=== PATIENT | male | born 1990 | race Caucasian/White ===

== ENCOUNTER 2017-08-26 10:08 | Emergency (ER) | payer OTHER ==
[~2017-08-26] VITALS: Ht 172.7 cm; Wt 77.1 kg
[~2017-08-26 10:08] MED LIST: TYLENOL WITH C1 EACH PO
--- NOTE | 2017-08-26 10:59 | Diagnostic Imaging Report ---
PROCEDURE:X-RAY RIGHT FOREARM, TWO VIEWS COMPARISON:None. INDICATIONS:S/P FALL. FINDINGS: There are no fractures, dislocations, lytic or blastic lesions. The bones are well-mineralized. The soft-tissues are unremarkable. CONCLUSION: No acute radiographic abnormality. Dictated by: Micheal Anton M.D. on 08/26/2017 at 11:08 Electronically approved by: Micheal Anton M.D. on 08/26/2017 at 11:08
== END 2017-08-26 11:40 | disposition home or self-care (01) ==
LOC: ER 10:08
DX: S50.12XA Contusion of left forearm, initial encounter (principal); W18.2XXA Fall in (into) shower or empty bathtub, initial encounter; Y93.E1 Activity, personal bathing and showering; Y92.002 Bathroom of unspecified non-institutional (private) residence as the place of occurrence of the external cause; F17.210 Nicotine dependence, cigarettes, uncomplicated
CPT/HCPCS: 99282

== ENCOUNTER 2017-10-30 20:09 | Emergency (ER) | payer OTHER ==
[~2017-10-30] VITALS: Ht 172.7 cm; Wt 77.1 kg
--- OUTSIDE RECORDS SUMMARY | 2017-10-30 20:13 | XMS REPORT ---
Author Author [facility] Address Unknown Phone Unavailable Care Team Providers Care Wind Power Project Manager Name Role Phone ROSALINA GALINDO Unavailable Unavailable Problems This patient has no known problems. Allergies, Adverse Reactions, Alerts This patient has no known allergies or adverse reactions. Medications This patient has no known medications. Results Test Description Test Time Test Comments Text Results Atomic Results Result Comments FOREARM RIGHT 2 VIEW [place] [id number] [place] [id number] Patient Name: HANY BRAGA MR #: [id number] : 1990 Age/Sex: 27/M Req #: [id number] Adm Physician: Ordered by: ROSALINA GALINDO MD, MD Report #: [id number] Location: ER Room/Bed: Procedure: [id number] DX/FOREARM RIGHT 2 VIEW Exam Date: 08/26/17 Exam Time: 1030 REPORT STATUS: Signed PROCEDURE: X- RAY RIGHT FOREARM, TWO VIEWS COMPARISON: None. INDICATIONS: S/P FALL. FINDINGS: There are no fractures, dislocations, lytic or blastic lesions. The bones are well-mineralized. The soft-tissues are unremarkable. CONCLUSION: No acute radiographic abnormality. Dictated by: Essie Griffith M.D. on 08/26/2017 at 11:08 Electronically approved by: Essie Griffith M.D. on 08/26/2017 at 11:08 Dictated By: ESSIE GRIFFITH MD 07 COPY TO: ROSALINA GALINDO
[2017-10-30] MEDS ORDERED: PANTOPRAZOLE 40 MG 10ML VIAL IV STA (20:17)
[2017-10-30] MEDS ORDERED: ONDANSETRON HCL INJ 2 MG/ML VIAL IV STA (20:17)
[2017-10-30] MEDS ORDERED: DICYCLOMINE HCL 20 MG/2 ML VIAL IM ONE (20:30)
[2017-10-30 20:54] LABS: BASOPHILS # (AUTO) 0.1 (0.0-0.1); BASOPHILS % 0.5 % (0.0-1.0); EOSINOPHILS # (AUTO) 0.2 (0.0-0.4); EOSINOPHILS % 2.1 % (0.0-6.0); HEMATOCRIT 48.4 % (38.2-49.6); HEMOGLOBIN 16.8 g/dL (14.0-18.0); LYMPHOCYTES # (AUTO) 3.9 (1.0-3.2); MEAN CORPUSCULAR HEMOGLOBIN 31.2 pg (28-32); MEAN CORPUSCULAR HGB CONC 34.7 g/dL (31-35); MONOCYTES # (AUTO) 0.8 (0.2-0.8); MONOCYTES % 6.8 % (4.4-11.3); NEUTROPHILS # (AUTO) 6.2 (2.1-6.9); NEUTROPHILS % 55.2 % (38.7-80.0); PLATELET COUNT 221 x10e3/uL (140-360); RED BLOOD COUNT 5.38 x10e6/uL (4.3-5.7); RED CELL DISTRIBUTION WIDTH 12.5 % (11.7-14.4)
[2017-10-30 21:06] LABS: ALANINE AMINOTRANSFERASE 46 IU/L (0-55); ALBUMIN 4.6 g/dL (3.5-5.0); ALBUMIN/GLOBULIN RATIO 1.3 (0.8-2.0); ALKALINE PHOSPHATASE 55 IU/L (40-150); AMYLASE 47 U/L (25-125); ANION GAP 16.5 mmol/L (8-16); BLOOD UREA NITROGEN 12 mg/dL (7-26); BUN/CREATININE RATIO 17 (6-25); CALCIUM 9.8 mg/dL (8.4-10.2); CARBON DIOXIDE 24 mmol/L (22-29); CHLORIDE 104 mmol/L (98-107); CREATININE, SERUM 0.72 mg/dL (0.72-1.25); EST GLOMERULAR FILTRATION RATE > 60 ML/MIN (60-); GLUCOSE 107 mg/dL (74-118); LIPASE 20 U/L (8-78); POTASSIUM 3.5 mmol/L (3.5-5.1); SODIUM 141 mmol/L (136-145)
--- NOTE | 2017-10-30 21:43 | Diagnostic Imaging Report ---
EXAM: Right Upper Quadrant Ultrasound INDICATION: Right upper quadrant pain COMPARISON: None. TECHNIQUE: Transverse and longitudinal images of the right upper abdomen were obtained. FINDINGS: Liver: Size: 16.4 cm in the right midclavicular line, normal Appearance: Normal echogenicity, smooth contour Mass: No focal masses Gallbladder: Stones/Sludge: Multiple mobile stones Wall: 0.2 cm Appearance: No wall thickening, pericholecystic fluid or hydrops. Sonographic Zhao's Sign: Negative Bile Ducts: Intrahepatic Ducts: No dilatation Extrahepatic Ducts: Common bile duct measures 0.3 cm, no dilatation Pancreas: Incompletely visualized due to overlying bowel gas, but no abnormality identified involving the visualized portions of the pancreas. Kidneys: Length: Right 11.9 cm Echogenicity: Normal Collecting System: No hydronephrosis Stone: None Cyst/Mass: None Vessels: Aorta: Visualized portions are normal Inferior Vena Cava: Visualized portions are normal Main Portal Vein: 1.1 cm, normal size with hepatopetal flow. Free Fluid: No ascites or pleural effusion IMPRESSION: Cholelithiasis without sonographic evidence of acute cholecystitis. However, these findings may explain patient's right upper quadrant recurrent colic pain Signed by: Dr. Lowell Smith M.D. on 10/30/2017 9:39 PM
--- NOTE | 2017-10-30 21:45 | Diagnostic Imaging Report ---
EXAMINATION: CHEST 2 VIEWS INDICATION: Cough. COMPARISON: None FINDINGS: TUBES and LINES: None. LUNGS: Lungs are not well inflated. Lungs are clear. There is no evidence of pneumonia or pulmonary edema. PLEURA: No pleural effusion or pneumothorax. HEART AND MEDIASTINUM: The cardiomediastinal silhouette is unremarkable. BONES AND SOFT TISSUES: No acute osseous lesion. Soft tissues are unremarkable. UPPER ABDOMEN: No free air under the diaphragm. IMPRESSION: No acute thoracic abnormality. Signed by: Dr. Lowell Smith M.D. on 10/30/2017 9:42 PM
== END 2017-10-30 22:13 | disposition home or self-care (01) ==
LOC: ER 20:09
DX: R10.11 Right upper quadrant pain (principal); R10.13 Epigastric pain; R11.2 Nausea with vomiting, unspecified; K80.70 Calculus of gallbladder and bile duct without cholecystitis without obstruction
CPT/HCPCS: 36415; 71046; 76705; 80053; 82150; 83690; 85025; 99284; J0500; J2405

== ENCOUNTER 2018-01-03 01:57 | Emergency (ER) | payer OTHER ==
[~2018-01-03] VITALS: Ht 172.7 cm; Wt 77.1 kg
--- OUTSIDE RECORDS SUMMARY | 2018-01-03 02:01 | XMS REPORT | Continuity of Care Document ---
Author Author [facility] Organization [facility] Address [address] [place] [address] Phone Unavailable Care Team Providers Care Operations Systems Specialist Name Role Phone NO, PCP PCP Unavailable Insurance Providers Guarantor Gordon Wyatt Address [address] [place] [address] Email [email or web address] [facility] Policy Number [id number] Subscriber's Name Gordon Wyatt Relationship 18 Self / Same As Patient Group Number [id number] Group Name [employer]. Effective Date 15 Advance Directives Directive Response Recorded Date/Time Does the patient have an advance directive? No 03/10/15 2:10pm If yes, is advance directive on file with [facility]? No 03/10/15 2:10pm If not on file with [facility] will patient provide a copy? Yes 10/30/17 8:14pm Do you have a Directive to Physician? No 10/30/17 8:14pm Do you have a Medical Power of Nutrition Services Worker? No 10/30/17 8:14pm Do you have an out of hospital Do Not Resuscitate Order? No 10/30/17 8:14pm Do you have any special needs we should be aware of? No 10/30/17 8:14pm Do you have a support person here with you today? Yes 10/30/17 8:14pm Did patient receive Notice of Privacy Practices? Yes 10/30/17 8:14pm Did patient receive patient rights and responsibilities? Yes 10/30/17 8:14pm Problems Medical Problem Onset Date Status Kidney stone on left side 03/10/2015 Acute UTI (lower urinary tract infection) 03/10/2015 Acute Medications Current Home MedicationsNo known current home medications. Past Home Medications Medication Directions Ordered Status Acetaminophen With Codeine (Tylenol With Codeine #3 Tablet) 1 Each Tablet, 300 Mg Oral Every 4 Hours as needed for Abdominal Pain Discontinued Social History Social History Problem Response Recorded Date/Time Onset Date Status Hx Psychiatric Problems No 03/10/2015 2:10pm Not Applicable Not Applicable Smoking Status Start Date Stop Date Current every day smoker Hospital Discharge Instructions No hospital discharge instruction information available. Plan of Care Discharge Date 10/30/17 10:13pm Disposition HOME, SELF-CARE Condition at Discharge Stable Instructions/Education Provided Cholelithiasis Forms Provided Work/School Excuse Prescriptions See Medication Section Referrals BUSHRA SILVEIRA MD Order Date: Call for an appointment Address: [address] [place] [id number] Additional Instructions/Education FOLLOW-UP WITH DR SILVEIRA, CALL FOR APPOINTMENT LOW FAT DIET, AVOID GREASY, FRIED, SPICY FOODS Functional Status No functional status information available. Allergies, Adverse Reactions, Alerts Allergen Type Severity Reaction Status Last Updated Gabapentin Allergy Unknown Active 08/26/17 Immunizations No immunization information available. Vital Signs Acute Vital Signs Vital Response Date/Time Pulse Pulse Rate (adult) 62 bpm (60 - 90) 01/16/2017 9:30am Respiratory Rate 16 bpm (12 - 24) 01/16/2017 9:30am Blood Pressure 130/84 mm Hg 01/16/2017 9:30am Height 5 ft 8 in 10/30/2017 8:16pm Weight 170 lb 10/30/2017 8:16pm Body Mass Index 25.8 kg/m^2 10/30/2017 8:16pm Results Laboratory Results Test Name Result Units Flags Reference Collection Date/Time Result Date/ Time Comments White Blood Count 11.19 x10e3/uL H 4.8-10.8 10/30/2017 8:22pm 2017 8:54pm Red Blood Count 5.38 x10e6/uL 4.3-5.7 10/30/2017 8:22pm 10/30/2017 8: 54pm Hemoglobin 16.8 g/dL 14.0-18.0 10/30/2017 8:10/30/2017 8:54pm Hematocrit 48.4 % 38.2-49.6 10/30/2017 8:10/30/2017 8:54pm Mean Corpuscular Volume 90.0 fL 81-99 10/30/2017 8:10/30/2017 8: 54pm Mean Corpuscular Hemoglobin 31.2 pg 28-32 10/30/2017 8:10/30/2017 8:54pm Mean Corpuscular Hemoglobin Concent 34.7 g/dL 31-35 10/30/2017 8:10/30/2017 8:54pm Red Cell Distribution Width 12.5 % 11.7-14.4 10/30/2017 8:2017 8:54pm Platelet Count 221 x10e3/uL 140-360 10/30/2017 8:10/30/2017 8: 54pm Neutrophils (%) (Auto) 55.2 % 38.7-80.0 10/30/2017 8:10/30/2017 8: 54pm Lymphocytes (%) (Auto) 35.0 % 18.0-39.1 10/30/2017 8:10/30/2017 8: 54pm Monocytes (%) (Auto) 6.8 % 4.4-11.3 10/30/2017 8:10/30/2017 8: 54pm Eosinophils (%) (Auto) 2.1 % 0.0-6.0 10/30/2017 8:10/30/2017 8: 54pm Basophils (%) (Auto) 0.5 % 0.0-1.0 10/30/2017 8:10/30/2017 8:54pm IM GRANULOCYTES % 0.4 % 0.0-1.0 10/30/2017 8:10/30/2017 8:54pm Neutrophils # (Auto) 6.2 2.1-6.9 10/30/2017 8:10/30/2017 8:54pm Lymphocytes # (Auto) 3.9 H 1.0-3.2 10/30/2017 8:10/30/2017 8: 54pm Monocytes # (Auto) 0.8 0.2-0.8 10/30/2017 8:pm 10/30/2017 8:54pm Eosinophils # (Auto) 0.2 0.0-0.4 10/30/2017 8:22pm 10/30/2017 8:54pm Basophils # (Auto) 0.1 0.0-0.1 10/30/2017 8:22pm 10/30/2017 8:54pm Absolute Immature Granulocyte (auto 0.05 x10e3/uL 0-0.1 10/30/2017 8: pm 10/30/2017 8:54pm Sodium Level 141 mmol/L 136-145 10/30/2017 8:pm 10/30/2017 9:27pm Potassium Level 3.5 mmol/L 3.5-5.1 10/30/2017 8:pm 10/30/2017 9:27pm Chloride Level 104 mmol/L 98-107 10/30/2017 8:pm 10/30/2017 9:27pm Carbon Dioxide Level 24 mmol/L 22-10/30/2017 8:10/30/2017 9: 27pm Anion Gap 16.5 mmol/L H 8-10/30/2017 8:10/30/2017 9:27pm Blood Urea Nitrogen 12 mg/dL 7-10/30/2017 8:10/30/2017 9:27pm Creatinine 0.72 mg/dL 0.72-1.25 10/30/2017 8:pm 10/30/2017 9:27pm BUN/Creatinine Ratio 17 6-10/30/2017 8:10/30/2017 9:27pm Estimat Glomerular Filtration Rate > 60 ML/MIN 60- 10/30/2017 8: 9:27pm Ranges were taken from the National Kidney Disease Education Program and the National Kid[employer] Foundation literature. Reference ranges: 60 or greater: Normal 16-59 (for 3 consecutive months): Chronic kidney disease 15 or less: Kidney failure Glucose Level 107 mg/dL 74-118 10/30/2017 8:pm 10/30/2017 9:27pm Calcium Level 9.8 mg/dL 8.4-10.2 10/30/2017 8:pm 10/30/2017 9:27pm Total Bilirubin 0.6 mg/dL 0.2-1.2 10/30/2017 8:22pm 10/30/2017 9:27pm Aspartate Amino Transf (AST/SGOT) 26 IU/L 5-34 10/30/2017 8:22pm 2017 9:27pm Alanine Aminotransferase (ALT/SGPT) 46 IU/L 0-55 10/30/2017 8:22pm 9:27pm Total Protein 8.1 g/dL 6.5-8.1 10/30/2017 8:pm 10/30/2017 9:27pm Albumin 4.6 g/dL 3.5-5.0 10/30/2017 8:pm 10/30/2017 9:27pm Globulin 3.5 g/dL 2.3-3.5 10/30/2017 8:pm 10/30/2017 9:27pm Albumin/Globulin Ratio 1.3 0.8-2.0 10/30/2017 8:pm 10/30/2017 9: 27pm Alkaline Phosphatase 55 IU/L 40-150 10/30/2017 8:pm 10/30/2017 9: 27pm Amylase Level 47 U/L 25-125 10/30/2017 8:pm 10/30/2017 9:27pm Lipase 20 U/L 8-78 10/30/2017 8:pm 10/30/2017 9:27pm Procedures Procedure Status Date Provider(s) MRI upper extremity w/o dye Active 02/07/17 EVAN JIMENEZ DO US gallbladder Active 10/30/17 TORI SAGASTUME MD X-ray of chest, two views Active 10/30/17 TORI SAGASTUME MD Encounters Encounter Location Arrival/Admit Date Discharge/Depart Date Attending Provider Departed Emergency Room [facility] 10/30/17 8:09pm 10:13pm TORI SAGASTUME MD Departed Emergency Room [facility] Patients [facility] 08/26/17 10:08am 08/26 11:40am ROSALINA GALINDO [facility] 02/07/17 4:26pm EVAN JIMENEZ DO Departed Emergency Room [facility] Patients [facility] 01/16/17 7:24am 9:45am JOYCELYN HANSON MD
[2018-01-03] MEDS ORDERED: PANTOPRAZOLE 40 MG 10ML VIAL IV STA (02:48)
[2018-01-03] MEDS ORDERED: SODIUM CHLORIDE 0.9% 1000ML 1,000 ML IV STA (02:48)
[2018-01-03] MEDS ORDERED: MORPHINE SULFATE 4 MG/ML SYR IV STA (02:48)
[2018-01-03] MEDS ORDERED: PROMETHAZINE HCL (IM) 25 MG/ML VIAL IV STA (02:48)
[2018-01-03 02:58] LABS: BASOPHILS # (AUTO) 0.1 (0.0-0.1); BASOPHILS % 0.6 % (0.0-1.0); EOSINOPHILS # (AUTO) 0.4 (0.0-0.4); EOSINOPHILS % 2.8 % (0.0-6.0); HEMATOCRIT 47.8 % (38.2-49.6); HEMOGLOBIN 16.2 g/dL (14.0-18.0); LYMPHOCYTES # (AUTO) 3.3 (1.0-3.2); LYMPHOCYTES % 25.8 % (18.0-39.1); MEAN CORPUSCULAR HEMOGLOBIN 30.7 pg (28-32); MEAN CORPUSCULAR HGB CONC 33.9 g/dL (31-35); MEAN CORPUSCULAR VOLUME 90.5 fL (81-99); MONOCYTES % 7.7 % (4.4-11.3); NEUTROPHILS % 62.6 % (38.7-80.0); PLATELET COUNT 243 x10e3/uL (140-360); RED BLOOD COUNT 5.28 x10e6/uL (4.3-5.7); RED CELL DISTRIBUTION WIDTH 11.9 % (11.7-14.4)
[2018-01-03 03:17] LABS: ALANINE AMINOTRANSFERASE 34 IU/L (0-55); ALKALINE PHOSPHATASE 70 IU/L (40-150); AMYLASE 45 U/L (25-125); ANION GAP 14.9 mmol/L (8-16); BLOOD UREA NITROGEN 14 mg/dL (7-26); BUN/CREATININE RATIO 20 (6-25); CALCIUM 10.2 mg/dL (8.4-10.2); CARBON DIOXIDE 24 mmol/L (22-29); CHLORIDE 107 mmol/L (98-107); CREATININE, SERUM 0.71 mg/dL (0.72-1.25); EST GLOMERULAR FILTRATION RATE > 60 ML/MIN (60-); GLUCOSE 100 mg/dL (74-118); LIPASE 25 U/L (8-78); POTASSIUM 3.9 mmol/L (3.5-5.1); SODIUM 142 mmol/L (136-145)
[2018-01-03 03:24] LABS: CLARITY,URINE CLOUDY (CLEAR); COLOR,URINE YELLOW (YELLOW)
[2018-01-03 03:25] LABS: BILIRUBIN,URINE NEGATIVE (NEGATIVE); KETONES,URINE TRACE (NEGATIVE); LEUKOCYTE ESTERASE ,URINE NEGATIVE (NEGATIVE); NITRITE,URINE NEGATIVE (NEGATIVE); PROTEIN,URINE DIPSTICK TRACE (NEGATIVE); URINE UROBILINOGEN 0.2 mg/dL (0.2 - 1)
[2018-01-03 03:39] LABS: AMORPHOUS SEDIMENT,URINE MANY (FEW); BACTERIA,URINE FEW /HPF; CALCIUM OXALATE CRYSTALS,UR FEW (FEW); EPITHELIAL CELLS,URINE RARE /LPF; WBC,URINE (MAN) 0-5 /HPF (0-5)
[2018-01-03] MEDS ORDERED: MORPHINE SULFATE 2 MG/ML SYR ONE (04:26)
== END 2018-01-03 06:36 | disposition left against medical advice (07) ==
LOC: ER 01:57
DX: Z53.21 Procedure and treatment not carried out due to patient leaving prior to being seen by health care provider (principal)
CPT/HCPCS: 36415; 80053; 81001; 82150; 83690; 85025; 99283; J2270; J2550; J7030

== ENCOUNTER 2018-10-02 10:45 | Emergency (ER) | payer SELFPAY ==
[~2018-10-02] VITALS: Ht 175.3 cm; Wt 99.8 kg
--- NOTE | 2018-10-02 12:16 | Diagnostic Imaging Report ---
Examination: Single AP view of the chest. COMPARISON: None. INDICATION: Dizziness DISCUSSION: Lines/tubes: None. Lungs: The lungs are well inflated and clear. No pneumonia or pulmonary edema. Pleura: No pleural effusion or pneumothorax. Heart and mediastinum: The heart and the mediastinum are unremarkable. Bones and soft tissues: No acute bony abnormalities. IMPRESSION: 1. No acute cardiopulmonary abnormalities. Signed by: Dr. Ivan Quintanilla M.D. on 10/02/2018 12:12 PM
[2018-10-02 13:17] VITALS: BP 125/84
== END 2018-10-02 13:25 | disposition home or self-care (01) ==
LOC: ER 10:45
DX: R42 Dizziness and giddiness (principal); F41.1 Generalized anxiety disorder
CPT/HCPCS: 71045; 99283

== ENCOUNTER 2018-10-07 08:36 | Emergency (ER) | payer SELFPAY ==
[~2018-10-07] VITALS: Ht 175.3 cm; Wt 97.5 kg
--- NOTE | 2018-10-07 08:51 | NUR ---
Xray at bedside
--- NOTE | 2018-10-07 08:57 | NUR ---
xray leaves bedside.
[2018-10-07] MEDS ORDERED: HYDROCODONE/APAP 10MG-325MG TAB PO ONE (09:15)
[2018-10-07] MEDS ORDERED: KETOROLAC TROMETHAMINE 60 MG/2 ML VIAL IM ONE (09:15)
--- NOTE | 2018-10-07 09:32 | Diagnostic Imaging Report ---
Right complete knee, portable CPT CODE: [id number]. INDICATION: Fall, twisting injury COMPARISON: None FINDINGS: Osseous flake lies 6 mm inferior to the patella adjacent to the femoral condyle visible on lateral image. The donor site may be from the lateral femoral condyle. There is a large suprapatellar effusion. The patella, distal proximal tibia and proximal fibula are normal in morphology. IMPRESSION: Avulsion injury, possibly from the lateral femoral condyle, with osseous flake inferior to the patella. Large knee effusion. Signed by: Dr. Leslie Torres MD on 10/07/2018 9:29 AM
--- NOTE | 2018-10-07 09:58 | NUR ---
pt resting comfortably in bed states pain has decreased to a 2/10
== END 2018-10-07 10:46 | disposition home or self-care (01) ==
LOC: ER 08:41
DX: S83.421A Sprain of lateral collateral ligament of right knee, initial encounter (principal); M25.461 Effusion, right knee; X50.1XXA Overexertion from prolonged static or awkward postures, initial encounter; Y92.008 Other place in unspecified non-institutional (private) residence as the place of occurrence of the external cause; K21.9 Gastro-esophageal reflux disease without esophagitis; F32.9 Major depressive disorder, single episode, unspecified; F17.210 Nicotine dependence, cigarettes, uncomplicated
CPT/HCPCS: 29530; 73562; 99284; J1885

== ENCOUNTER 2022-02-18 19:11 | Emergency (ER) | payer SELFPAY ==
[~2022-02-18] VITALS: Ht 175.3 cm; Wt 97.5 kg
[2022-02-18] MEDS ORDERED: SODIUM CHLORIDE 0.9% 1000ML 1,000 ML IV STA (19:24)
[2022-02-18] MEDS ORDERED: KETOROLAC TROMETHAMINE 30 MG/ML VIAL IM STA (19:24)
[2022-02-18] MEDS ORDERED: ONDANSETRON HCL INJ 2MG/ML 2ML 2 MG/ML VIAL IV STA (19:24)
[2022-02-18] MEDS ORDERED: SODIUM CHLORIDE 0.9% 1000ML 1,000 ML ONE (19:39)
[2022-02-18] MEDS ORDERED: FLOMAX0.4 MG PO (20:59)
[2022-02-18] MEDS ORDERED: ONDANSETRON ODT4 MG PO (20:59)
[2022-02-18] MEDS ORDERED: ACETAMINOPHEN-1 EAC4 PO (20:59)
[2022-02-18] MEDS ORDERED: KETOROLAC TROME10 MG PO (20:59)
== END 2022-02-18 21:14 | disposition home or self-care (01) ==
LOC: ER 19:17
DX: R10.31 Right lower quadrant pain (principal); N20.2 Calculus of kidney with calculus of ureter; R11.0 Nausea; K21.9 Gastro-esophageal reflux disease without esophagitis; F32.A Depression, unspecified; Z87.442 Personal history of urinary calculi
CPT/HCPCS: 74176; 99283; J1885; J2405; J7030